=== PATIENT | female | born 1950 | race Caucasian/White ===

== ENCOUNTER 2020-08-12 17:42 | Emergency (ER) | payer OTHER ==
[~2020-08-12 17:42] MED LIST: AUGMENTIN 500-1 EACH PO; BENTYL10 MG PO; GEODON60 MG PO; HYDROCODON-ACE1 EAC2 PO; METFORMIN HCL500 MG PO; NORCO 5-325 TA1 EACH PO; ONDANSETRON ODT4 MG SL; PERCOCET 10-321 EACH PO; PHENERGAN25 M1 PO; WELLBUTRIN75 MG PO; XARELTO15 MG PO; ZOFRAN8 MG PO; ZOLOFT25 MG PO
== END 2020-08-12 19:50 | disposition other institution (70) ==
LOC: FER 17:42
DX: S66.127A Laceration of flexor muscle, fascia and tendon of left little finger at wrist and hand level, initial encounter (principal); S61.217A Laceration without foreign body of left little finger without damage to nail, initial encounter; S63.297A Dislocation of distal interphalangeal joint of left little finger, initial encounter; I10 Essential (primary) hypertension; E11.9 Type 2 diabetes mellitus without complications; Z88.5 Allergy status to narcotic agent; Z88.8 Allergy status to other drugs, medicaments and biological substances; W22.8XXA Striking against or struck by other objects, initial encounter; Y92.009 Unspecified place in unspecified non-institutional (private) residence as the place of occurrence of the external cause
CPT/HCPCS: 73130; J1170; J2270; J2405

== ENCOUNTER 2020-10-26 11:24 | Emergency (ER) | payer OTHER ==
[2020-10-26] MEDS ORDERED: ROBAXIN750 MG PO (14:51)
[2020-10-26] MEDS ORDERED: PREDNISONE50 MG PO (14:51)
== END 2020-10-26 15:05 | disposition home or self-care (01) ==
LOC: FER 11:24
DX: M50.31 Other cervical disc degeneration, high cervical region (principal); I10 Essential (primary) hypertension; Z88.5 Allergy status to narcotic agent; Z88.8 Allergy status to other drugs, medicaments and biological substances
CPT/HCPCS: 72050; J7512

== ENCOUNTER → 2021-08-29 | Day surgery (SDC) | payer OTHER ==
[~2021-08-29] VITALS: Ht 177.8 cm; Wt 104.4 kg
[~2021-08-29] MED LIST changes: +GABAPENTIN300 MG PO; +LIPITOR 10MG TA10 MG PO; +PREDNISONE50 MG PO; +ROBAXIN750 MG PO; +SYNTHROID25 MCG PO; +TRAZODONE 100M100 MG PO
== END | disposition home or self-care (01) ==
LOC: FAS 08:17
DX: Z12.11 Encounter for screening for malignant neoplasm of colon (principal); D12.5 Benign neoplasm of sigmoid colon; K63.89 Other specified diseases of intestine; I10 Essential (primary) hypertension; E11.9 Type 2 diabetes mellitus without complications; E78.00 Pure hypercholesterolemia, unspecified; M19.90 Unspecified osteoarthritis, unspecified site; E03.9 Hypothyroidism, unspecified; Z80.0 Family history of malignant neoplasm of digestive organs; Z88.5 Allergy status to narcotic agent; Z88.8 Allergy status to other drugs, medicaments and biological substances; Z96.659 Presence of unspecified artificial knee joint; Z96.611 Presence of right artificial shoulder joint; Z87.891 Personal history of nicotine dependence
CPT/HCPCS: J1610; J2250; J2704; J7120